=== PATIENT | male | born 1945 | race Caucasian/White ===

== ENCOUNTER 2018-02-11 18:25 | Emergency (ER) | payer OTHER ==
[~2018-02-11] VITALS: Ht 170.2 cm; Wt 67.1 kg
[2018-02-11] MEDS ORDERED: DONEPEZIL HCL O10 MG (19:02)
[2018-02-11] MEDS ORDERED: CRESTOR20 MG (19:02)
[2018-02-11] MEDS ORDERED: RIVASTIGMINE3 MG (19:03)
[2018-02-11] MEDS ORDERED: ELIQUIS5 MG (19:03)
[2018-02-11] MEDS ORDERED: ALTACE1.25 MG (19:03)
[2018-02-12] MEDS ORDERED: MECLIZINE HCL25 MG PO (13:33)
== END 2018-02-12 14:04 | disposition home or self-care (01) ==
LOC: ER 18:25
DX: R61 Generalized hyperhidrosis (principal); R11.11 Vomiting without nausea; R42 Dizziness and giddiness; R25.2 Cramp and spasm; R53.1 Weakness